=== PATIENT | female | born 1970 | race Caucasian/White ===

== ENCOUNTER → 2024-08-18 18:32 | Outpatient (REF) | payer BC, SELFPAY | LOC: MRI 3T 18:32 | PROVIDERS: ATTENDING PHYSICIAN Physician Assistant; FAMILY PHYSICIAN Internal Medicine | DX: M54.16 Radiculopathy, lumbar region (principal); M54.12 Radiculopathy, cervical region | CPT/HCPCS: 72141; 72148 ==

== ENCOUNTER → 2024-11-04 12:36 | Outpatient (REF) | payer BC, SELFPAY | LOC: RAD 12:36 | PROVIDERS: ATTENDING PHYSICIAN Internal Medicine Endocrinology, Diabetes & Metabolism; FAMILY PHYSICIAN Internal Medicine | DX: E04.2 Nontoxic multinodular goiter (principal) | CPT/HCPCS: 76536 ==

== ENCOUNTER → 2024-11-16 15:13 | Outpatient (REF) | payer BC, SELFPAY ==
[2024-11-16 16:50] LABS: Free T4 1.42 ng/dl (0.78-2.19)
[2024-11-16 17:04] LABS: TSH < 0.02 uIU/ml (0.47-4.68)
== END ==
LOC: REG 15:13
PROVIDERS: ATTENDING PHYSICIAN Internal Medicine Endocrinology, Diabetes & Metabolism; FAMILY PHYSICIAN Internal Medicine
DX: E03.9 Hypothyroidism, unspecified (principal)
CPT/HCPCS: 36415; 84439; 84443

== ENCOUNTER 2024-12-29 06:15 | Emergency (ER) | payer BC, SELFPAY ==
[2024-12-29 06:17] VITALS: BP 173/109
--- NOTE | 2024-12-29 06:32 | ED.GENMED ---
History of Present Illness
General
Chief Complaint: Eye Problems
Source: patient
Exam Limitations: none
Time Seen by Provider: 12/29/24 06:20
Nursing documentation reviewed up to this point in time: agreed with
History of Present Illness
History of Present Illness:
54-year-old female presents to the ER for evaluation of redness and irritation of her left eye. Patient reports that she started with some irritation last night and was rubbing her eye yesterday evening. She says that when she went to take her
contact lenses out last night she did not find the contact lens in her left eye�she is not sure whether it fell out when she was rubbing her eye or whether it was lost in the recesses of her eye. She went to sleep when she woke up this morning
redness and irritation of the left eye was worse and so she came to the ER. She denies any pain. She denies any vision loss. She denies any other symptoms.
Past History
Past History
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
ED Past Surgical History: and Urological (Bladder surgery as a child)
Social History
Tobacco: Non-smoker
Alcohol: None
Personal:
Living: with family
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
Family History
Family History: Other
Review of Systems
Review of Systems
All Other Systems: ROS reviewed and negative except as documented in HPI and ROS
EENT: Reports other (Eye redness and irritation/itchiness)
Phy Exam
Physical Exam
Physical Exam:
General: Well appearing and non-toxic
Eyes: Pupils are equal round and reactive to light bilaterally, extraocular movements are intact; right eye appears normal without injection; with specific attention to the left eye she does have slight conjunctival injection, no hyphema or
hypopyon, lid was inverted and fornices swept with no contact lens or foreign body noted; on fluorescein stain of the left eye she has no corneal abrasion, negative Neo sign; visual acuity as noted; ocular pressures 20/20/19 on right, 18/18/19 on
left
ENT: protecting airway
Neck: appears supple
CV: No evidence of cyanosis
Resp: No accessory muscle use
Abd: Non-distended
Extremities: No deformities
Neuro: Alert
Psych: Normal affect
Skin: Intact
Scores
Heart Failure Risk
Heart Failure Risk Score: Not Applicable
Heart Score for Chest Pain Patients
STEMI patient?: Not applicable
Withdrawal Assessment of Alcohol
Withdrawal Assessment Completed?: Not applicable
Course
Orders/Labs/Results
Orders:
Orders
12/29/24 06:31
Visual Acuity- Treatment ONCE
12/29/24 06:39
Ibuprofen [Motrin] 400 mg PO NOW STA
12/29/24 06:51
Ciprofloxacin HCl [Ciloxan 0.3% Ophthalmic Solution] See Dose Instructions OPHTH NOW STA
Vital Signs
Initial and Last Documented VS:
Initial Vital Signs
Temp Pulse Resp BP Pulse Ox
36.9 C 77 18 173/109 98
12/29/24 06:17 12/29/24 06:17 12/29/24 06:17 12/29/24 06:17 12/29/24 06:17
Last Documented Vital Signs
Temp Pulse Resp BP Pulse Ox
36.9 C 77 18 173/109 98
12/29/24 06:17 12/29/24 06:17 12/29/24 06:17 12/29/24 06:17 12/29/24 06:17
MDM/Problems Addressed
Differential Diagnosis Includes:
Viral/bacterial/allergic/irritant conjunctivitis, iritis, ocular foreign body
MDM/Problems Addressed:
54-year-old female presents with irritation and redness of the left eye; she was rubbing her eye yesterday and today symptoms worsening. She does wear contact lenses when she went to take her contacts out last night she could not locate her left
contact unclear if it fell out or if it was lost in the eye. On exam this morning contact lens not visible on thorough inspection of the eye suspect it likely fell out with rubbing yesterday. She does have what appears to be acute conjunctivitis
today. Will plan to treat with ophthalmic drops. Follow-up with ophthalmology.
*Pulse Oximetry
Patient hypoxic: no
*Critical Care Note
Total Time (30-74mins, 75-104mins- exclusive of procedures): Not Applicable
Data Reviewed
Source: patient
ED Attending Note
-
Portions of this chart may have been created with voice recognition software.� Occasional wrong word or��sound alike� substitutions may have occurred due to the inherent limitations of voice recognition software.
Discharge Plan
Departure
Patient Disposition: Home (Routine Discharge)
Date of Disposition: 12/29/24
Time of Disposition: 06:43
Patient with high blood pressure during this ER visit?: Yes
Discharge Problem:
Conjunctivitis
Instructions: Conjunctivitis (Pinkeye) (DC)
Prescriptions:
New
moxifloxacin 0.5 % drops
1 drp ophthalmic (eye) TID 7 Days Qty: 3 0RF
Rx Instructions:
1-2 drops every 2 hours for 2 days THEN every 6 hours for 5 days
No Action
labetalol 200 MG tablet
600 mg PO BID
levothyroxine 100 MCG tablet
137 mcg PO DAILY
multivitamin with folic acid [Tab-A-Tino] 1 TABLET tablet
1 tab PO DAILY
Cymbalta:
60 mg PO DAILY
gabapentin 300 MG capsule
300 mg PO TID
oxycodone 5 MG tablet
5 mg PO Q6HPRN PRN (Reason: moderate-severe pain) Qty: 30 0RF
Rx Instructions:
1 tab moderate pain or 2 if pain severe
Dx total joint replacement
ongoing therapy
celecoxib 200 MG capsule
200 mg PO DAILY Qty: 30 0RF
Rx Instructions:
Take with food.
Do not take within 2 hours of Aspirin.
ondansetron HCl 4 MG tablet
4 mg PO Q6HPRN PRN (Reason: nausea) Qty: 15 0RF
Rx Instructions:
Take 1/2 hour prior to Oxycodone if experiencing recurrent nausea.
famotidine 20 MG tablet
20 mg PO HS Qty: 30 0RF
Rx Instructions:
Take nightly while on Celebrex.
mupirocin 1 APPLIC ointment
1 applic intranasal BID Qty: 1 0RF
Patient Comments:
pt states taken as ordered on 03/12/21 received dose this am
cefadroxil 500 MG capsule
500 mg PO Q12 Qty: 14 0RF
Rx Instructions:
Start night of discharge and take until prescription is finished.
acetaminophen 500 MG tablet
1,000 mg PO Q6H Qty: 60 0RF
Rx Instructions:
Do not exceed >4000 mg daily.
docusate sodium 100 MG capsule
100 mg PO BID Qty: 30 0RF
sennosides [senna] 8.6 MG tablet
8.6 mg PO BID Qty: 30 0RF
aspirin 325 MG tablet
325 mg PO DAILY Qty: 28 0RF
Rx Instructions:
Take daily x4 weeks for blood clot prevention.
Saccharomyces boulardii [Florastor] 250 MG capsule
250 mg PO DAILY Qty: 7 0RF
Rx Instructions:
Over the counter. Take daily while on antibiotic.
If unavailable, choose another probiotic.
magnesium hydroxide 30 ML suspension
30 ml PO DAILYPRN PRN (Reason: constipation) Qty: 7 0RF
hydrochlorothiazide 25 MG tablet
25 mg PO DAILY Qty: 0 0RF
Rx Instructions:
Hold if systolic blood pressure <130 while on Oxycodone
Spirolactone
25 mg PO DAILY Qty: 0 0RF
Rx Instructions:
Hold if systolic blood pressure <130 while on Oxycodone.
amoxicillin-pot clavulanate 1 TABLET tablet
1 tab PO Q12 Qty: 20 0RF
Referrals:
Umang Thompson MD [Active] - Call in 1-3 days for appt ([employer])
Stand Alone Forms: Return to Work
Activity Restrictions/Additional Instructions:
Thank you for visiting the Emergency Department at [facility].
1. Please schedule a follow up appointment as directed. Call first thing tomorrow morning to make an appointment.
2. If indicated, please take your medications as instructed and indicated on discharge paperwork.
3. If any of your symptoms do not improve, or persist, or become more severe within 6-12 hours, please return to the emergency department for further care.
4. Please return to the emergency department if you develop a headache, neck pain/stiffness, fever greater than 100.4F, chest pain, shortness of breath, persistent nausea, vomiting, slurred speech, difficulty walking, numbness/tingling, weakness,
signs of infection or any other symptoms that are worrisome to you.
Please call [phone] if you have any questions.
Interventions
Interventions:
*Risk Screen - Suicide Last Done: 12/29/24 06:17
*General Assessment Last Done: 12/29/24 06:17
*Neglect/Abuse Screening Last Done: 12/29/24 06:17
ED- Fall Risk Assessment Last Done: 12/29/24 06:29
*ED COVID-19 Vaccine History Last Done: 12/29/24 06:28
Discharge Date and Time
Print Language: SLOVAK
[2024-12-29] MEDS: MOTRIN 400 MG PO (06:52)
[2024-12-29] MEDS: CILOXAN 0.3% OPHTHALMIC SOLUTION 1 DROP OPHTH (07:16)
== END 2024-12-29 07:20 | disposition home or self-care (01) ==
LOC: EMR 06:15
PROVIDERS: EMERGENCY PHYSICIAN Emergency Medicine; FAMILY PHYSICIAN Internal Medicine
DX: H10.9 Unspecified conjunctivitis (principal); E03.9 Hypothyroidism, unspecified; I10 Essential (primary) hypertension
CPT/HCPCS: 99283

== ENCOUNTER → 2025-06-10 06:11 | Outpatient (REF) | payer BC, SELFPAY ==
[2025-06-10 07:27] LABS: Hematocrit 42.2 % (37.0-47.0); Hemoglobin 14.9 g/dL (12.0-16.0); Mean Corp Hgb Conc. 35.3 g/dL (33.0-37.0); Mean Corpuscular Volume 86.7 fL (81.0-99.0); Nucleated Red Blood Cells % 0 %; Platelet Count 238 10^3/uL (130-400); Red Cell Dist. Width 13.2 % (11.5-14.5)
[2025-06-10 08:05] LABS: ALT (SGPT) 23 U/L (0-35); AST (SGOT) 22 U/L (14-36); Albumin 4.9 g/dl (3.5-5.0); Alkaline Phosphatase 69 U/L (38-126); Blood Urea Nitrogen 18 mg/dl (7-17); Calcium 9.8 mg/dl (8.4-10.2); Carbon Dioxide 27 mmol/L (22-30); Chloride 102 mmol/L (98-107); Glucose 110 mg/dl (70-99); HDL Cholesterol 46 mg/dl; LDL Cholesterol, Calculated 118 mg/dl; Magnesium 2.1 mg/dl (1.6-2.3); Potassium 3.8 mmol/L (3.5-5.1); Sodium 138 mmol/L (135-145); Total Protein 7.4 g/dl (6.3-8.2); Very Low Density Lipoprotein 40 mg/dl (0-30); eGFR > 60.00
[2025-06-10 08:18] LABS: Vitamin D, 25-OH*** 37.8 ng/mL (30-80)
[2025-06-10 08:31] LABS: TSH < 0.02 uIU/ml (0.47-4.68)
[2025-06-10 09:58] LABS: Glycohemoglobin (HgbA1c) 4.6 % (4.0-5.6)
== END ==
LOC: REG 06:11
PROVIDERS: ATTENDING PHYSICIAN Internal Medicine Cardiovascular Disease; FAMILY PHYSICIAN Internal Medicine; OTHER PHYSICIAN Internal Medicine Endocrinology, Diabetes & Metabolism; OTHER PHYSICIAN Specialist
DX: R06.9 Unspecified abnormalities of breathing (principal); R07.89 Other chest pain; Z13.1 Encounter for screening for diabetes mellitus; I10 Essential (primary) hypertension; R80.9 Proteinuria, unspecified
CPT/HCPCS: 36415; 80053; 80061; 82306; 82570; 83036; 83735; 83880; 84156; 84439; 84443; 85025

== ENCOUNTER → 2025-06-22 14:37 | Outpatient (REF) | payer BC, SELFPAY | LOC: RCS 14:37 | PROVIDERS: ATTENDING PHYSICIAN Internal Medicine Cardiovascular Disease; FAMILY PHYSICIAN Internal Medicine; OTHER PHYSICIAN Specialist | DX: R06.09 Other forms of dyspnea (principal); R07.89 Other chest pain | CPT/HCPCS: 93306 ==

== ENCOUNTER → 2025-06-29 12:36 | Outpatient (REF) | payer BC, SELFPAY | LOC: PET 12:36 | PROVIDERS: ATTENDING PHYSICIAN Internal Medicine Cardiovascular Disease | DX: R06.09 Other forms of dyspnea (principal); R07.89 Other chest pain | CPT/HCPCS: 78431; A9555; J2785 ==

== ENCOUNTER → 2025-07-07 14:12 | Outpatient (REF) | payer BC, SELFPAY | LOC: RAD 14:12 | PROVIDERS: ATTENDING PHYSICIAN Internal Medicine Cardiovascular Disease; FAMILY PHYSICIAN Internal Medicine | DX: I10 Essential (primary) hypertension (principal); Z86.79 Personal history of other diseases of the circulatory system | CPT/HCPCS: 93880 ==

== ENCOUNTER → 2025-08-06 15:02 | Outpatient (REF) | payer BC, SELFPAY | LOC: REG 15:02 | PROVIDERS: ATTENDING PHYSICIAN Internal Medicine Critical Care Medicine; FAMILY PHYSICIAN Internal Medicine | DX: R06.02 Shortness of breath (principal) | CPT/HCPCS: 71046 ==

== ENCOUNTER → 2025-08-30 08:37 | Outpatient (REF) | payer BC, SELFPAY ==
[2025-08-30 09:53] LABS: Hematocrit 39.1 % (37.0-47.0); Hemoglobin 13.6 g/dL (12.0-16.0); Mean Corp Hgb Conc. 34.8 g/dL (33.0-37.0); Mean Corpuscular Volume 90.5 fL (81.0-99.0); Nucleated Red Blood Cells % 0 %; Platelet Count 239 10^3/uL (130-400); Red Cell Dist. Width 14.3 % (11.5-14.5)
[2025-08-30 11:21] LABS: ALT (SGPT) 31 U/L (0-35); AST (SGOT) 25 U/L (14-36); Albumin 5.0 g/dl (3.5-5.0); Alkaline Phosphatase 73 U/L (38-126); Blood Urea Nitrogen 16 mg/dl (7-17); Calcium 10.1 mg/dl (8.4-10.2); Carbon Dioxide 29 mmol/L (22-30); Chloride 102 mmol/L (98-107); Glucose 80 mg/dl (70-99); Potassium 4.0 mmol/L (3.5-5.1); Sodium 141 mmol/L (135-145); Total Protein 7.8 g/dl (6.3-8.2); eGFR > 60.00
[2025-08-30 18:27] LABS: Hepatitis B Surface Antigen Negative (Negative)
[2025-08-30 18:44] LABS: Hepatitis C Antibody Negative (Negative)
== END ==
LOC: REG 08:37
PROVIDERS: ATTENDING PHYSICIAN Specialist; FAMILY PHYSICIAN Internal Medicine
DX: G35.D Multiple sclerosis, unspecified (principal)
CPT/HCPCS: 36415; 80053; 82784; 82785; 85025; 86480; 86706; 86803; 87340; 87389

== ENCOUNTER 2025-11-02 09:06 | Outpatient (RCR) | payer BC, SELFPAY ==
[2025-11-02] VITALS (10 sets, daily range): BP systolic 139–168; BP diastolic 74–88
[2025-11-02] MEDS: TYLENOL 650 MG PO (09:26)
[2025-11-02] MEDS: NSS 500 IV (09:27)
[2025-11-02 09:32] LABS: Hematocrit 41.2 % (37.0-47.0); Hemoglobin 14.0 g/dL (12.0-16.0); Mean Corp Hgb Conc. 34.0 g/dL (33.0-37.0); Mean Corpuscular Volume 90.9 fL (81.0-99.0); Platelet Count 214 10^3/uL (130-400); Red Cell Dist. Width 12.6 % (11.5-14.5)
[2025-11-02] MEDS: SOLU-MEDROL PF 51.6 MG IV (09:43)
[2025-11-02] MEDS: BENADRYL 51 MG IV (10:08)
[2025-11-02] MEDS: OCREVUS 260 MG IV (10:42)
== END 2025-11-03 08:50 | disposition home or self-care (01) ==
LOC: OID 09:06
PROVIDERS: ATTENDING PHYSICIAN Specialist
DX: G35.D Multiple sclerosis, unspecified (principal)
CPT/HCPCS: 85025; 96361; 96367; 96413; 96415; J2350

== ENCOUNTER 2025-11-10 18:03 | Emergency (ER) | payer OTHER, BC, SELFPAY ==
[2025-11-10 18:18] VITALS: BP 178/107
[2025-11-10 19:05] VITALS: BMI 34.1
[2025-11-10 22:00] VITALS: BP 142/90
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
== END 2025-11-10 22:41 | disposition home or self-care (01) ==
LOC: EMR 18:03
PROVIDERS: EMERGENCY PHYSICIAN Emergency Medicine; FAMILY PHYSICIAN Internal Medicine
DX: S13.4XXA Sprain of ligaments of cervical spine, initial encounter (principal); S06.0X0A Concussion without loss of consciousness, initial encounter; V89.2XXA Person injured in unspecified motor-vehicle accident, traffic, initial encounter; Y92.410 Unspecified street and highway as the place of occurrence of the external cause; I10 Essential (primary) hypertension; K21.9 Gastro-esophageal reflux disease without esophagitis; K58.9 Irritable bowel syndrome, unspecified; E03.9 Hypothyroidism, unspecified; M41.9 Scoliosis, unspecified
CPT/HCPCS: 99284; 70450; 71046; 72125; 93005